=== PATIENT | female | born 1955 | race Caucasian/White ===

== ENCOUNTER 2025-06-04 12:22 | Inpatient (IN) | payer MEDICARE, SELFPAY ==
[2025-06-04] VITALS (26 sets, daily range): BP systolic 132–158; BP diastolic 71–87; PULSE 67–83; RESP 16–20; TEMP 36.1–37.3; O2SAT 94–98; BMI 49.9; BMI 51.7
--- NOTE | 2025-06-04 12:41 | XR_ITS ---
Examination: CT abdomen and pelvis without contrast. Coronal 3-D reconstructions. Sagittal 2-D reconstructions. Date and time of exam:June 04, 2025, 1257 hrs. Indications: Onset generalized abdominal pain today CTDI: vol (mGy): 24 DLP: (mGycm): 1279 Technique: Axial images of the abdomen have been obtained, 3 mm slice thickness Intravenous contrast material has not been administered. Low dose protocols were performed. One or more of the following dose reduction techniques were used; automated exposure control, adjustment of the mA and/or KV according to patient size, use of iterative reconstruction technique. Findings: Liver is mildly irregular in contour and moderately enlarged Absent gallbladder Common hepatic duct 14 mm Edema around the pancreas including tail pancreas Spleen is not enlarged No renal or ureteral calculi, no hydronephrosis. Aorta normal size. No bowel obstruction. No pericecal inflammatory change No bowel obstruction or diverticulitis No pelvic mass Advanced degenerative disc disease L2-L3, L4-L5, L5-S1 Impression: Pancreatitis, no pseudocyst Enlarged common hepatic duct, consider MRCP follow-up
--- NOTE | 2025-06-04 12:42 | PD.EDRME ---
Rapid Medical Screening Exam RME Arrival date/time: 06/04/25 12:22 69-year-old female presents to the Emergency Department today for complaint of abdominal pain Chief Complaint: Abdominal Pain Vital signs: Vital Signs Temperature 99.2 F 06/04/25 12:36 Pulse Rate 83 06/04/25 12:36 Respiratory Rate 18 06/04/25 12:36 Blood Pressure 146/81 H 06/04/25 12:36 Pulse Oximetry (%) 98 06/04/25 12:36 Oxygen Delivery Method Room Air 06/04/25 12:36
[2025-06-04 13:48] LABS: Basophils # (Auto) 0.0 Thou/mm3 (0.0-0.2); Basophils % (Auto) 0 % (0-2.5); Eosinophils # (Auto) 0.1 Thou/mm3 (0.0-0.5); Eosinophils % (Auto) 1 % (0-10); Hematocrit 35.1 % (36.0-46.0); Hemoglobin 12.2 g/dL (12.0-16.0); Immature Granulocytes Auto 0.08 Thou/mm3 (0.00-0.00); Lymphocytes # (Auto) 1.7 Thou/mm3 (1.0-4.8); Lymphocytes % (Auto) 12 % (10-50); Mean Corpuscular HGB Conc 34.8 g/dl (31.0-37.0); Mean Corpuscular Hemoglobin 31.1 pg (25.0-35.0); Mean Corpuscular Volume 90 fL (80-100); Monocytes # (Auto) 0.7 Thou/mm3 (0.0-0.8); Monocytes % (Auto) 5 % (0-12); Neutrophils # (Auto) 11.3 Thou/mm3 (1.8-7.7); Neutrophils % (Auto) 81 % (37-80); Nucleated Red Blood Cell # 0.00 Thou/mm3 (0.00-0.00); Nucleated Red Blood Cell % 0 /100 WBC (0); Platelet Count 198 Thou/mm3 (140-440); RDW Standard Deviation 44.6 fL (36.4-46.3); Red Blood Count 3.92 Miln/mm3 (4.00-5.20); White Blood Count 13.9 Thou/mm3 (3.6-11.0)
[2025-06-04 14:17] LABS: Alanine Aminotransferase 39 U/L (10-49); Albumin, Serum 4.2 gm/dL (3.4-4.8); Albumin/Globulin Ratio 1.6 (1.2-2.2); Alkaline Phosphatase 88 U/L (46-116); Anion Gap 9 (7-16); Aspartate Amino Transferase 23 U/L (0-34); BUN/Creatinine Ratio 12 Ratio (12-20); Bilirubin,Total 1.3 mg/dL (0.3-1.2); Blood Urea Nitrogen 11 mg/dL (9-23); Calcium 8.7 mg/dL (8.3-10.6); Calcium (Corrected) 8.7 mg/dL (8.5-10.1); Carbon Dioxide 27.1 mMol/L (20.0-31.0); Chloride 101 mMol/L (98-107); Creatinine (Component) 0.9 mg/dL (0.6-1.3); Estimated Creatinine Clearance 74.1 mL/min (>60); Globulin 2.7 gm/dL (2.3-3.5); Glucose 132 mg/dL (74-106); Lipase 44 U/L (12-53); Osmolality,Calculated 275 (275-295); Potassium 3.1 mMol/L (3.4-5.1); Sodium 137 mMol/L (136-145); Total Protein 6.9 gm/dL (5.7-8.2); Troponin I < 0.020 ng/mL (0.0-0.045); eGFR > 60 See Note
--- NOTE | 2025-06-04 14:49 | EDNOTE_ITS ---
ED Abdominal Pain RME/HPI General Chief Complaint: Abdominal Pain Stated complaint: ABD/BACK PAIN; VOMITING Time seen by provider: 06/04/25 14:29 Arrival date/time: 06/04/25 12:22 RME / HPI RME / HPI narrative: 69-year-old female patient with significant history of hypertension, morbid obesity, came in for evaluation regarding left upper quadrant pain. Patient has been having pain to the left upper quadrant, described as dull ache, severity 5 out of 10, been ongoing for the last 3 days associated with nausea and vomiting this morning. Patient denies any fever. Denies any diarrhea constipation denies any other complaints. Patient is nonalcoholic. Patient surgical history includes laparoscopic cholecystectomy. Patient has been taking Tylenol with no relief. Related Data Allergies Allergy/AdvReac Type Severity Reaction Status Date / Time No Known Allergies Allergy Verified 06/04/25 12:26 Review of Systems Review of Systems Narrative Review of Systems: Review of system reviewed and within normal limits except mentioned in HPI ED Exam Narrative Physical exam: VITAL SIGNS: Reviewed. GENERAL APPEARANCE: Alert and interactive, follows commands, no acute distress, HEAD AND FACE: Non-traumatic. ENT: PERRL, pink conjunctivitis, eyelid no trauma, Mucous membrane moist. NECK: Supple, nontender, no nuchal rigidity. CHEST: No tenderness, no crepitus, no paradoxical movement, no retractions. LUNGS: Clear, well ventilated, symmetric, no rales, no wheezing, no ronchi, no stridor, good breath sounds bilaterally. HEART: Regular rate, regular rhythm, no murmur, no gallops. ABDOMEN: Soft, positive bowel sounds, nondistended, no guarding, left upper quadrant tenderness, no rebound, no masses, RECTAL: Deferred. GENITAL: Deferred. NEUROLOGICAL: Gross motor function intact sensory function intact, Appropriate for age. MUSCULOSKELETAL: low back nontender, full range of motion. EXTREMITIES: Nontender, full range of motion. SKIN: Color pink, dry, no rash, no lacerations, no abrasions, no contusions. LYMPHATICS: Deferred. Course Quality Measures none Orders Category Date Time Status COVID-19 Screening Questionnaire NOW Care 06/04/25 15:17 Active Decision to Admit X1 Care 06/04/25 15:[address] abdomen pelvis wo con Stat Exams 06/04/25 12:41 Completed CBC Stat Lab 06/04/25 13:13 Completed Comprehensive Metabolic Panel Stat Lab 06/04/25 13:13 Completed Lipase Stat Lab 06/04/25 13:13 Completed Lipid Panel Stat Lab 06/04/25 15:04 Completed Troponin I Stat Lab 06/04/25 13:13 Completed UA, C/S IF [Urinalysis, C/S if Indicated] Stat Lab 06/04/25 12:41 Ordered Morphine Inj Med 06/04/25 14:52 Discontinued 4 mg IVP X1 ONE Potassium Chloride [K-Dur] Med 06/04/25 14:29 Discontinued 40 meq PO X1 ONE Ringers Lactated 1000 ml [Lactated Ringers] 1,000 ml Med 06/04/25 14:52 Discontinued IV 999 mls/hr Vital Signs Vital signs: Vital Signs Temperature 99.2 F 06/04/25 12:36 Pulse Rate 83 06/04/25 12:36 Respiratory Rate 18 06/04/25 12:36 Blood Pressure 146/81 H 06/04/25 12:36 Pulse Oximetry (%) 98 06/04/25 12:36 Oxygen Delivery Method Room Air 06/04/25 12:36 Abdominal Pain MDM [facility] Narrative [facility] Narrative:: 69-year-old female patient with significant history of hypertension, morbid obesity, came in for evaluation regarding left upper quadrant pain. Patient has been having pain to the left upper quadrant, described as dull ache, severity 5 out of 10, been ongoing for the last 3 days associated with nausea and vomiting this morning. Patient denies any fever. Denies any diarrhea constipation denies any other complaints. Patient is nonalcoholic. Patient surgical history includes laparoscopic cholecystectomy. Patient has been taking Tylenol with no relief. workup is significant for acute pancreatitis per CT scan, patient's lipase is n ormal. Lipid panel also came back unremarkable. Patient received IV fluids, morphine, potassium replacement. Case discussed with hospitalist, who admitted the patient. Patient data External records reviewed:: None Clinical information provided by:: patient Social determinants that could affect healthcare access:: none Patient has the following chronic illnesses:: Hypertension How is presenting disease/condition affected by chronic disease/condition?: uneffected by Evaluation data The following diagnostics were reviewed and interpreted by me:: lab results and radiology exam(s) Lab and/or radiology exams considered but not ordered:: None Interpretation Summary: See results MDM Medications / Prescriptions Medications or Prescriptions considered but not ordered:: none Medication administrations:: Medication Administration History Discontinued Medications Lactated Ringer's (Lactated Ringers) 1,000 mls @ 999 mls/hr IV .Q1H1M ONE Stop: 06/04/25 15:52 Last Infusion: 06/04/25 15:58 Dose: Infused Documented By: Admin: 06/04/25 15:03 Dose: 999 mls/hr Documented By: MARE Morphine Sulfate (Morphine Sulf Inj 10 Mg/Ml Vial) 4 mg IVP X1 ONE Stop: 06/04/25 14:53 Last Admin: 06/04/25 16:00 Dose: 4 mg Documented By: MARE Potassium Chloride (Potassium Chloride 20 Meq Tabcr) 40 meq PO X1 ONE Stop: 06/04/25 14:30 Last Admin: 06/04/25 14:45 Dose: 40 meq Documented By: JOSE Potassium replacement morphine IV fluids Consultations Consultation(s) initiated? (list below): No Diagnosis Differential diagnosis abdominal pain: abdominal pain, gastroenteritis and pancreatitis Most likely diagnosis given after review of the tests above:: Acute pancreatitis Admission Indicated Admission indicated?: indicated Explain why admission is indicated or not indicated:: Acute pancreatitis needs monitoring and pain control Admission Request Was there a request for admission?: Yes Admission Attestation Admission request attestation: Discussed case with [Dr. Rogers] from Hospitalist service regarding admission. Discussed patients ED course, exam findings, labs, and radiology results. The Hospitalist [agrees,] to accept the patient for admission. Disposition Plan Disposition Plan: Admit Discharge Plan Plan Patient Disposition: Admit Acute Care w/in Hospital Discharge Disposition comment: Stable Prescriptions/Referrals Referrals: Teto Carranza PA-C [Primary Care Provider] - In 1 week Problem List Clinical Impression: Pancreatitis Patient/Caregiver Discharge Instructions Discharge Activity: activity as tolerated Education Materials: Pancreatitis Acute Dc Print Language: Chinese Stand Alone Forms: Lisa Award Info., Patient Portal Info Letter
[2025-06-04] MEDS: RINGERS LACTATED 1000 ML 1,000 ML 999 ML IV (15:03)
[2025-06-04 15:33] LABS: Cardiac Risk Estimate 2.5 RATIO (3.7-5.6); Cholesterol 142 mg/dL (132-200); HDL Cholesterol 57 mg/dL (40-60); LDL Cholesterol,Calculated 67 mg/dL (0-130); Triglycerides 91 mg/dL (30-150)
[2025-06-04] MEDS: MORPHINE SULF INJ 10 MG/ML VIAL 4 MG IVP (16:00)
--- NOTE | 2025-06-04 17:05 | ESHP_ITS ---
Documentation for date of: 06/04/25 Review of Systems Review of Systems Narrative Review of Systems: 69-year-old female with a significant past medical history of T2DM, hypertension and morbid obesity, and osteoarthritis of bilat hips and knees, presenting for evaluation of left upper quadrant abdominal pain. The pain is described as a dull ache with a severity of 5/10, and has been ongoing for the last 3 days. The pain is localized to the LUQ and epigastric region and radiates to the back. The patient reports laying down flat makes it worse. She notes the pain has been constant since onset. She has been taking Tylenol, but reports no relief from this medication. She also mentions not being able to sleep because of the pain. Patient experienced 6-8 episodes of emesis 3 days ago with no blood or bile and no episodes since. She has been nauseous for past 3 days. She has minimal appetite. She also denies fever, chills, diarrhea, or constipation. There is no report of hematemesis (vomiting blood) or melena (black, tarry stools). She denies any urinary symptoms, such as pain or frequency, and reports no changes in bowel habits. ED course: T 97.5, HR 83, RR 18, O2 sat 98% RA. In ED CT abdomen was done and showed edema around the pancreas including tail pancreas. Impression is pancreatitis with no pseudocyst. Labs were significant for WBC 13.9, K 3.1, lipase 44, total bilirubin 1.3, lipid panel within normal limit. In ED recieved IV fluids, morphine, and potassium potassium. PHx: as stated above Surgical Hx: Cholecystectomy 2023 for bile drainage concerns, Corrective eye surgery for Cross eye correction 1976 Social Hx: Patient lives by herself, works at [employer] part-time, independent with activities of daily living. No alcohol history, no smoking history, no drug use history. Exam Vital Signs Temp Pulse Resp BP Pulse Ox O2 Del Method 97.5 F 69 16 132/78 H 96 Room Air 06/04/25 16:24 06/04/25 16:24 06/04/25 16:24 06/04/25 16:24 06/04/25 16:24 06/04/25 16:24 Narrative Exam General: Alert, no acute distress. Skin: Warm, dry, intact, no obvious rash. Head: Normocephalic, atraumatic. Eye: Normal conjunctiva, PERRL. Throat: Oral mucosa moist. No obvious lesions in oropharynx. Cardiovascular: Regular rate and rhythm, no murmur, +S1/S2. Respiratory: Lungs are clear to auscultation, respirations unlabored, no crackles, no wheezing. Gastrointestinal: Soft, nondistended, mild tenderness to epigastric and left upper quadrant. No guarding or rebound tenderness. Extremities: No edema, no cyanosis, no clubbing. Mild tenderness to lumbar region vertebral and paravertebral. Neuro: No focal deficits observed. Conversant, moving all extremities. No overt cerebellar signs/incoordination. Psychiatric: Cooperative, appropriate affect. Results: Labs 06/05/25 05:19 06/05/25 05:19 Labs: Short CBC 06/04/25 Range/Units 13:13 WBC 13.9 H (3.6-11.0) Thou/mm3 Hgb 12.2 (12.0-16.0) g/dL Hct 35.1 L (36.0-46.0) % Plt Count 198 (140-440) Thou/mm3 BMP 06/04/25 13:13 Sodium 137 Potassium 3.1 L Chloride 101 Carbon Dioxide 27.1 BUN 11 Creatinine 0.9 Glucose 132 H Calcium 8.7 Cardiac Enzymes 06/04/25 Range/Units 13:13 Troponin I < 0.020 (0.0-0.045) ng/mL Liver Function 06/04/25 Range/Units 13:13 Total Bilirubin 1.3 H (0.3-1.2) mg/dL AST 23 (0-34) U/L ALT 39 (10-49) U/L Alkaline Phosphatase 88 (46-116) U/L Albumin 4.2 (3.4-4.8) gm/dL Quality Measures Quality Measures none Advance care planning discussed with:: patient Medications Home Medications and Allergies Home Medications ?Medication ?Instructions ?Recorded ?Confirmed ?Type acetaminophen 500 mg tablet 500 mg PO Q6H PRN fever or pain 06/04/25 06/04/25 History albuterol sulfate 90 mcg/actuation 1 puff inhalation Q 4H PRN 06/04/25 06/04/25 History aerosol inhaler shortness of breath or wheez ing atorvastatin 10 mg tablet 10 mg PO QDAY 06/04/2506/04 History benazepril 20 mg tablet 20 mg PO QDAY 06/04/2506/04 History fluticasone propionate 50 2 spray intranasal Q12H 05/2406/04/25 History mcg/actuation nasal spray,suspension hydrochlorothiazide 25 mg tablet 25 mg PO QDAY 5 06/04/25 History metformin 500 mg tablet 500 mg PO QDAY 06/04/2505/24 History omeprazole 20 mg capsule,delayed 20 mg PO QDAY 5 06/04/25 History release Allergies Allergy/AdvReac Type Severity Reaction Status Date / Time No Known Allergies Allergy Verified 06/04/25 12:26 Visit Medications Acetaminophen (Acetaminophen 325 Mg Tablet) 650 mg PO Q6H PRN PRN Reason: Fever >100 or pain 1-3 Stop: 07/04/25 16:42 Hydrocodone Bitart/Acetaminophen (Hydrocodone/Apap 10/325 Tab) 1 tab PO Q4H PRN PRN Reason: PAIN SCALE 4-6 (Moderate Stop: 06/09/25 16:33 Atorvastatin Calcium (Atorvastatin Calcium 10 Mg Tablet) 10 mg PO HS GLADIS Stop: 07/04/25 20:59 Bisacodyl (Bisacodyl 10 Mg Supp) 10 mg RI QDAY PRN; Protocol PRN Reason: Constipation Stop: 07/04/25 16:33 Dextrose (Dextrose 50%-Water Inj 50 Ml Syringe) 25 ml IV Q15MIN PRN PRN Reason: BG 50-70 responsive npo pt Stop: 07/04/25 16:44 Dextrose (Dextrose 50%-Water Inj 50 Ml Syringe) 50 ml IV Q15MIN PRN PRN Reason: BG <50 OR BG <70 & pt unresponsive Stop: 07/04/25 16:44 Enoxaparin Sodium (Enoxaparin Sod Inj 40 Mg/0.4 Ml Syringe) 40 mg SC QDAY [facility] Stop: 06/18/25 16:44 Glucagon (Glucagon Inj 1 Mg Vial) 1 mg IM Q15MIN PRN PRN Reason: BG <70, and no IV access Lactated Ringer's (Lactated Ringers) 1,000 mls @ 150 mls/hr IV .Q6H40M [facility] Stop: 07/04/25 16:51 Insulin Human Lispro (Insulin Lispro (Admelog) 1 Unit/0.01 Ml Unit) 0 unit SC AC [facility]; Protocol Stop: 07/04/25 16:59 Morphine Sulfate (Morphine Sulf Inj 10 Mg/Ml Vial) 2 mg IVP Q2H PRN PRN Reason: PAIN SCALE 7-10 (Severe Stop: 06/09/25 16:41 Ondansetron HCl (Ondansetron Inj 2 Mg/Ml Inj 2 Ml) 4 mg IVP Q4H PRN; Protocol PRN Reason: nausea or vomiting Stop: 07/04/25 16:52 Pantoprazole Sodium (Pantoprazole Inj 40 Mg Vial) 40 mg IVP QDAY GLADIS Stop: 07/04/25 16:44 Discontinued Medications Lactated Ringer's (Lactated Ringers) 1,000 mls @ 999 mls/hr IV .Q1H1M ONE Stop: 06/04/25 15:52 Last Infusion: 06/04/25 15:58 Dose: Infused Lactated Ringer's (Lactated Ringers) 1,000 mls @ 200 mls/hr IV .Q5H [facility] Stop: 07/04/25 16:44 Morphine Sulfate (Morphine Sulf Inj 10 Mg/Ml Vial) 4 mg IVP X1 ONE Stop: 06/04/25 14:53 Last Admin: 06/04/25 16:00 Dose: 4 mg Potassium Chloride (Potassium Chloride 20 Meq Tabcr) 40 meq PO X1 ONE Stop: 06/04/25 14:30 Last Admin: 06/04/25 14:45 Dose: 40 meq Assessment & Plan Plan Assessment: 69-year-old female with a significant past medical history of T2DM, hypertension and morbid obesity, and osteoarthritis of bilat hips and knees, presenting for evaluation of LUQ and epigastric abdominal pain x 3 days. Patient admitted for treatment of pancreatitis. #Acute pancreatitis Causes of pancreatitis include gallstones, alcohol, high triglycerides, hypercalcemia. Patient presented with left upper quadrant pain and epigastric pain for the past 3 days with radiation to the back and associated nausea and vomiting. Patient has no alcohol history, cholecystectomy done last year, lipid panel within normal limits, calcium level within normal limits. No exposure to contrast recently. Of note patient uses hydrochlorothiazide, benazepril for hypertension control. Lipase: 44 Lipid panel: Triglycerides 91, cholesterol 142, LDL 67 CT abdomen shows edema around the pancreas including tail of the pancreas Leukocytosis WBC 13.9 - expected finding in acute pancreatitis Plan ? N.p.o. ? IV fluids lactated Ringer's 150 cc an hour ? Morphine as needed ? Antiemetics ? Monitor clinical status #Type 2 diabetes Patient on metformin at home 500 mg daily Patient mentions A1c level of 5.7% around 3 weeks ago Plan ? Insulin sliding scale ? Hypoglycemia protocol ? A1c level ordered #Hypertension Blood pressure 146/81 Holding benazepril and hydrochlorothiazide at present Plan - If patient's blood pressures not controlled consider adding antihypertensives #Hyperlipidemia Triglycerides 91, cholesterol 142, LDL 67 Plan Ordered atorvastatin 10 mg daily as per home dosing, resume when allowed oral intake Health Maintenance: Diet: N.p.o. GI prophylaxis: Protonix DVT prophylaxis: Enoxaparin Antibiotics: None CODE STATUS: Full Disposition: MedSur Case discussed with my attending Dr. Saba Briseno MD PGY-1 Attending Provider Attestation/Addendum I have examined the patient, reviewed labs and imaging findings, discussed the case with the resident(s), and reviewed entered orders. I agree with the plan of care as outlined in this note, with these additional summaries/recommendations: After examination of the patient and review of the clinical data, I feel that this patient needs admission to the hospital for further treatment and evaluation. Patient seen at bedside. She meets criteria for acute pancreatitis with 2 out of 3 cardinal signs. She endorses typical abdominal pain and edema around the pancreas including the tail. Unclear etiology for acute pancreatitis at this time. Possibly secondary to medication although awaiting home medication reconciliation. No evidence of alcohol withdrawal or biliary stone. Triglycerides within normal limits. Start IV fluids, pain management, and bowel rest. As needed Zofran for nausea and Tylenol for fever. Leukocytosis present although likely reactive and will monitor for now. Repeat hematology panel in AM. Minimal hypokalemia present and replacement given. Follow-up repeat level in AM. Start insulin sliding scale for diabetes mellitus type 2 with Accu- Cheks. Target blood sugar 140-180 while hospitalized. Patient is morbidly obese and should follow-up with PCP for weight loss management. Patient updated on the plan and in agreement. All questions answered to satisfaction. Please see residents note for additional details and management. Dr. Saba MD
[2025-06-04] MEDS: ENOXAPARIN SOD INJ 40 MG/0.4 ML SYRINGE SC (17:28)
[2025-06-04] MEDS: RINGERS LACTATED 1000 ML 1,000 ML 150 ML IV (17:37)
[2025-06-04 18:28] LABS: Collection Type, Urine Clean Catch
[2025-06-04 18:39] LABS: Bilirubin,Urine Negative (Negative); Blood,Urine Negative (Negative); Clarity,Urine Clear (Clear/Hazy); Color,Urine Yellow (Lt Yel-Yel); Glucose, Urine Negative (Negative); Ketones,Urine 1+ (Negative); Leukocyte Esterase,Urine Positive (Negative); Nitrite,Urine Negative (Negative); PH,Urine 7.0 (5.0-7.0); Protein,Urine 1+ (Neg - Trace); RBC,Urine 4 /hpf (0-3); Specific Gravity,Urine 1.024 (1.001-1.035); Squamous Epithelial Cell,Urine 7 /hpf (0-5); Urobilinogen,Urine 3.0 mg/dL (0.0-1.0); WBC,Urine 11 /hpf (0-5)
[2025-06-04 18:41] LABS: Culture Indicated,Urine Yes
[2025-06-04] MEDS: ATORVASTATIN CALCIUM 10 MG TABLET PO (20:21)
[2025-06-05] VITALS (7 sets, daily range): BP systolic 120–154; BP diastolic 67–92; PULSE 63–71; RESP 16–18; TEMP 36.1–36.8; O2SAT 93–97
[2025-06-05] MEDS: RINGERS LACTATED 1000 ML 1,000 ML 150 ML IV ×3 (02:21→20:12)
[2025-06-05 06:26] LABS: Basophils # (Auto) 0.0 Thou/mm3 (0.0-0.2); Basophils % (Auto) 0 % (0-2.5); Eosinophils # (Auto) 0.2 Thou/mm3 (0.0-0.5); Eosinophils % (Auto) 1 % (0-10); Hematocrit 35.5 % (36.0-46.0); Hemoglobin 12.1 g/dL (12.0-16.0); Immature Granulocytes Auto 0.06 Thou/mm3 (0.00-0.00); Lymphocytes # (Auto) 1.6 Thou/mm3 (1.0-4.8); Lymphocytes % (Auto) 12 % (10-50); Mean Corpuscular HGB Conc 34.1 g/dl (31.0-37.0); Mean Corpuscular Hemoglobin 31.1 pg (25.0-35.0); Mean Corpuscular Volume 91 fL (80-100); Monocytes # (Auto) 0.8 Thou/mm3 (0.0-0.8); Monocytes % (Auto) 6 % (0-12); Neutrophils # (Auto) 11.3 Thou/mm3 (1.8-7.7); Neutrophils % (Auto) 81 % (37-80); Nucleated Red Blood Cell # 0.00 Thou/mm3 (0.00-0.00); Nucleated Red Blood Cell % 0 /100 WBC (0); Platelet Count 196 Thou/mm3 (140-440); RDW Standard Deviation 46.0 fL (36.4-46.3); Red Blood Count 3.89 Miln/mm3 (4.00-5.20); White Blood Count 14.0 Thou/mm3 (3.6-11.0)
[2025-06-05 07:14] LABS: Alanine Aminotransferase 31 U/L (10-49); Albumin, Serum 3.9 gm/dL (3.4-4.8); Albumin/Globulin Ratio 1.5 (1.2-2.2); Alkaline Phosphatase 96 U/L (46-116); Anion Gap 9 (7-16); Aspartate Amino Transferase 20 U/L (0-34); BUN/Creatinine Ratio 15 Ratio (12-20); Bilirubin,Total 1.6 mg/dL (0.3-1.2); Blood Urea Nitrogen 12 mg/dL (9-23); Calcium 8.6 mg/dL (8.3-10.6); Calcium (Corrected) 8.7 mg/dL (8.5-10.1); Carbon Dioxide 25.9 mMol/L (20.0-31.0); Chloride 103 mMol/L (98-107); Creatinine (Component) 0.8 mg/dL (0.6-1.3); Estimated Creatinine Clearance 85.3 mL/min (>60); Globulin 2.6 gm/dL (2.3-3.5); Glucose 110 mg/dL (74-106); Magnesium 1.4 mg/dL (1.6-2.6); Osmolality,Calculated 276 (275-295); Phosphorous 1.9 mg/dL (2.4-5.1); Potassium 3.3 mMol/L (3.4-5.1); Sodium 138 mMol/L (136-145); Total Protein 6.5 gm/dL (5.7-8.2); eGFR > 60 See Note
[2025-06-05 07:16] LABS: Glucose Estimated Average 111 mg/dL (80-131); Hemoglobin A1C 5.5 % Hgb (4.8-6.0)
[2025-06-05] MEDS: ENOXAPARIN SOD INJ 40 MG/0.4 ML SYRINGE SC (09:02)
[2025-06-05] MEDS: LOSARTAN POTASSIUM 25 MG TABLET PO (09:02)
[2025-06-05] MEDS: POTASSIUM CHL 10 mEq IVPB 10 MEQ/100 ML BAG 100 MEQ IV ×4 (09:13→12:19)
--- NOTE | 2025-06-05 12:57 | PD.RESPRO ---
Documentation for date of: 06/05/25 Subjective Subjective Interval history: Patient examined today at bedside. No acute overnight events. Patient feels well today, no complaints of abdominal pain, no chest pain, no shortness of breath. Last bowel movement 2 days ago. Exam Vital Signs Temp Pulse Resp BP Pulse Ox O2 Del Method 96.9 F 64 18 131/73 H 93 L Room Air 06/05/25 08:00 06/05/25 09:02 06/05/25 08:00 06/05/25 09:02 06/05/25 08:00 06/05/25 08:00 Narrative Exam General: Alert, no acute distress. Skin: Warm, dry, intact, no obvious rash. Head: Normocephalic, atraumatic. Eye: Normal conjunctiva, PERRL. Throat: Oral mucosa moist. No obvious lesions in oropharynx. Cardiovascular: Regular rate and rhythm, no murmur, +S1/S2. Respiratory: Lungs are clear to auscultation, respirations unlabored, no crackles, no wheezing. Gastrointestinal: Soft, nondistended, no abdominal tenderness. No guarding or rebound tenderness. Extremities: No edema, no cyanosis, no clubbing. Mild tenderness to lumbar region vertebral and paravertebral. Neuro: No focal deficits observed. Conversant, moving all extremities. No overt cerebellar signs/incoordination. Psychiatric: Cooperative, appropriate affect. Objective Labs 06/06/25 05:59 06/06/25 05:59 Labs: Laboratory Results - last 24 hr 06/04/25 06/04/25 06/04/25 13:13 15:04 18:16 WBC 13.9 H RBC 3.92 L Hgb 12.2 Hct 35.1 L MCV 90 MCH 31.1 MCHC 34.8 RDW Std Deviation 44.6 Plt Count 198 Neut % (Auto) 81 H Lymph % (Auto) 12 [place] % (Auto) 5 Eos % (Auto) 1 Baso % (Auto) 0 Neut # (Auto) 11.3 H Lymph # (Auto) 1.7 [place] # (Auto) 0.7 Eos # (Auto) 0.1 Baso # (Auto) 0.0 Immature Gran # (Auto) 0.08 H Absolute Nucleated RBC 0.00 Immature Gran % 1 H Nucleated RBC % 0 Sodium 137 Potassium 3.1 L Chloride 101 Carbon Dioxide 27.1 Anion Gap 9 BUN 11 Creatinine 0.9 Estim Creat Clear Calc 74.1 eGFR > 60 BUN/Creatinine Ratio [address] Glu mg/dL Hemoglobin A1c Calculated Osmolality 275 Calcium 8.7 Corrected Calcium 8.7 Phosphorus Magnesium Total Bilirubin 1.3 H AST 23 ALT 39 Alkaline Phosphatase 88 Troponin I < 0.020 Total Protein 6.9 Albumin 4.2 Globulin 2.7 Albumin/Globulin Ratio 1.6 Triglycerides 91 Cholesterol 142 LDL Cholesterol, Calc 67 HDL Cholesterol 57 Cholesterol/HDL Ratio 2.5 L Lipase 44 Ur Collection Type Clean Catch Urine Color Yellow Urine Clarity Clear Urine pH 7.0 Ur Specific [place] 1.024 Urine Protein 1+ A Urine Glucose (UA) Negative Urine Ketones 1+ A Urine Blood Negative Urine Nitrite Negative Urine Bilirubin Negative Urine Urobilinogen (Auto) 3.0 Ur Leukocyte Esterase Positive Urine RBC 4 H Urine WBC 11 H Ur Squamous Epith Cells 7 H Urine Bacteria None Ur Culture Indicated? Yes 06/05/25 05:19 WBC 14.0 H RBC 3.89 L Hgb 12.1 Hct 35.5 L MCV 91 MCH 31.1 MCHC 34.1 RDW Std Deviation 46.0 Plt Count 196 Neut % (Auto) 81 H Lymph % (Auto) 12 [place] % (Auto) 6 Eos % (Auto) 1 Baso % (Auto) 0 Neut # (Auto) 11.3 H Lymph # (Auto) 1.6 [place] # (Auto) 0.8 Eos # (Auto) 0.2 Baso # (Auto) 0.0 Immature Gran # (Auto) 0.06 H Absolute Nucleated RBC 0.00 Immature Gran % 0 Nucleated RBC % 0 Sodium 138 Potassium 3.3 L Chloride 103 Carbon Dioxide 25.9 Anion Gap 9 BUN 12 Creatinine 0.8 Estim Creat Clear Calc 85.3 eGFR > 60 BUN/Creatinine Ratio [address]ucose [address] Glu mg/dL 111 Hemoglobin A1c 5.5 Calculated Osmolality 276 Calcium 8.6 Corrected Calcium 8.7 Phosphorus 1.9 L Magnesium 1.4 L Total Bilirubin 1.6 H AST 20 ALT 31 Alkaline Phosphatase 96 Troponin I Total Protein 6.5 Albumin 3.9 Globulin 2.6 Albumin/Globulin Ratio 1.5 Triglycerides Cholesterol LDL Cholesterol, Calc HDL Cholesterol Cholesterol/HDL Ratio Lipase Ur Collection Type Urine Color Urine Clarity Urine pH Ur Specific [place] Urine Protein Urine Glucose (UA) Urine Ketones Urine Blood Urine Nitrite Urine Bilirubin Urine Urobilinogen (Auto) Ur Leukocyte Esterase Urine RBC Urine WBC Ur Squamous Epith Cells Urine Bacteria Ur Culture Indicated? Quality Measures Quality Measures none Advance care planning discussed with:: patient Assessment & Plan Assessment Current Active Medications: Generic Name Dose Route Start Last Admin Trade Name Freq PRN Reason Stop Dose Admin Acetaminophen 650 mg 06/04/25 16:43 Acetaminophen 325 Mg Tablet PO 07/04/25 16:42 Q6H PRN Fever >100 or pain 1-3 Hydrocodone Bitart/Acetaminophen 1 tab 06/04/25 16:34 06/05/25 09:01 Hydrocodone/Apap 10/325 Tab PO 06/09/25 16:33 1 tab Q4H PRN Administration PAIN SCALE 4-6 (Moderate Atorvastatin Calcium 10 mg 06/04/25 21:00 06/04/25 20:21 Atorvastatin Calcium 10 Mg Tablet PO 07/04/25 20:59 10 mg HS GLADIS Administration Bisacodyl 10 mg 06/04/25 16:34 Bisacodyl 10 Mg Supp OH 07/04/25 16:33 QDAY PRN Constipation Protocol Dextrose 25 ml 06/04/25 16:45 Dextrose 50%-Water Inj 50 Ml Syringe IV 07/04/25 16:44 Q15MIN PRN BG 50-70 responsive npo pt Dextrose 50 ml 06/04/25 16:45 Dextrose 50%-Water Inj 50 Ml Syringe IV 07/04/25 16:44 Q15MIN PRN BG <50 OR BG <70 & pt unresponsive Enoxaparin Sodium 40 mg 06/04/25 16:45 06/05/25 09:02 Enoxaparin Sod Inj 40 Mg/0.4 Ml Syringe SC 06/18/25 16:44 40 mg QDAY GLADIS Administration Glucagon 1 mg 06/04/25 16:45 Glucagon Inj 1 Mg Vial IM Q15MIN PRN BG <70, and no IV access Lactated Ringer's 1,000 mls @ 150 mls/hr 06/04/25 16:52 06/05/25 08:56 Lactated Ringers IV 07/04/25 16:51 150 mls/hr .Q6H40M GLADIS Administration Insulin Human Lispro 0 unit 06/05/25 00:00 06/05/25 11:24 Insulin Lispro (Admelog) 1 Unit/0.01 Ml Unit SC 07/05/25 00:00 Not Given Q6HR GLADIS Protocol Losartan Potassium 25 mg 06/05/25 09:00 06/05/25 09:02 Losartan Potassium 25 Mg Tablet PO 07/05/25 08:59 25 mg QDAY GLADIS Administration Morphine Sulfate 2 mg 06/04/25 16:42 Morphine Sulf Inj 10 Mg/Ml Vial IVP 06/09/25 16:41 Q2H PRN PAIN SCALE 7-10 (Severe Ondansetron HCl 4 mg 06/04/25 16:53 Ondansetron Inj 2 Mg/Ml Inj 2 Ml IVP 07/04/25 16:52 Q4H PRN nausea or vomiting Protocol Pantoprazole Sodium 40 mg 06/04/25 16:45 06/05/25 09:12 Pantoprazole Inj 40 Mg Vial IVP 07/04/25 16:44 40 mg QDAY GLADIS Administration Potassium Phos/Sodium Phos 1 packet 06/05/25 21:00 [place],[facility] Mbdb 1 Packet (1.5 Gm) PO 07/05/25 20:59 BID GLADIS Plan Assessment: 69-year-old female with a significant past medical history of T2DM, hypertension and morbid obesity, and osteoarthritis of bilat hips and knees, presenting for evaluation of LUQ and epigastric abdominal pain x 3 days. Patient admitted for treatment of acute pancreatitis. #Acute pancreatitis Causes of pancreatitis include gallstones, alcohol, high triglycerides, hypercalcemia. Patient presented with left upper quadrant pain and epigastric pain for the past 3 days with radiation to the back and associated nausea and vomiting. Patient has no alcohol history, cholecystectomy done last year, lipid panel within normal limits, calcium level within normal limits. No exposure to contrast recently. Of note patient uses hydrochlorothiazide, benazepril for hypertension control. Lipase: 44 Lipid panel: Triglycerides 91, cholesterol 142, LDL 67 CT abdomen shows edema around the pancreas including tail of the pancreas Leukocytosis WBC 13.9 - expected finding in acute pancreatitis Plan ? Advance to clear fluids ? IV fluids lactated Ringer's 150 cc an hour ? Morphine as needed ? Antiemetics ? Monitor clinical status ? Patient may be taking semaglutide?follow-up on this ? Likely discharge within the next 24 to 48 hours if continuing to improve #Electrolyte derangements Potassium 3.3 -> replenished today Magnesium 1.4 -> replenished today Phosphorus 1.9 -> replenished today #Type 2 diabetes Patient on metformin at home 500 mg daily ? Semaglutide Patient mentions A1c level of 5.7% around 3 weeks ago Plan ? Insulin sliding scale ? Hypoglycemia protocol ? A1c level ordered #Hypertension Blood pressure 146/81 Holding benazepril and hydrochlorothiazide at present due to possible cause of pancreatitis Plan - Added losartan 25 mg daily #Hyperlipidemia Triglycerides 91, cholesterol 142, LDL 67 Plan Ordered atorvastatin 10 mg daily as per home dosing, resume when allowed oral intake Health Maintenance: Diet: Clear fluids GI prophylaxis: Protonix DVT prophylaxis: Enoxaparin Antibiotics: None CODE STATUS: [facility] with my attending Dr. Saba Briseno MD PGY-1 Attending Provider Attestation/Addendum I have examined the patient, reviewed labs and imaging findings, discussed the case with the resident(s), and reviewed entered orders. I agree with the plan of care as outlined in this note, with these additional summaries/recommendations: After examination of the patient and review of the clinical data, I feel that this patient needs admission to the hospital for further treatment and evaluation. Patient seen at bedside. No acute overnight events. Patient reports significant improvement in abdominal pain although not resolved. Patient diagnosed with acute pancreatitis on admission. She met criteria for acute pancreatitis with 2 out of 3 cardinal signs. Unclear etiology for acute pancreatitis at this time. Possibly secondary to medication although awaiting home medication reconciliation. No evidence of alcohol withdrawal or biliary stone. Triglycerides within normal limits. Continue IV fluids, pain management, and bowel rest. As needed Zofran for nausea and Tylenol for fever. Leukocytosis present although likely reactive and will monitor for now. Repeat hematology panel in AM. Continue insulin sliding scale for diabetes mellitus type 2 with Accu-Cheks. Target blood sugar 140-180 while hospitalized. Patient is morbidly obese and should follow-up with PCP for weight loss management. Patient updated on the plan and in agreement. All questions answered to satisfaction. Please see residents note for additional details and management. Dr. Saba MD
[2025-06-05] MEDS: Magnesium Sulfate 4 GM Ivpb 4 GM/50 ML BAG IV (13:06)
--- NOTE | 2025-06-05 15:02 | PC.SS ---
Rounding note: Advancing diet, patient experiencing pain when eating. Patient to discharge home when medically clear.
[2025-06-05] MEDS: NAPH,KPH MBDB 1 PACKET (1.5 GM) PO (20:07)
[2025-06-05] MEDS: ATORVASTATIN CALCIUM 10 MG TABLET PO (20:07)
[2025-06-06] VITALS (7 sets, daily range): BP systolic 103–136; BP diastolic 68–77; PULSE 64–69; RESP 16–97; TEMP 36.1–36.7; O2SAT 93–97
[2025-06-06 06:36] LABS: Basophils # (Auto) 0.0 Thou/mm3 (0.0-0.2); Basophils % (Auto) 0 % (0-2.5); Eosinophils # (Auto) 0.3 Thou/mm3 (0.0-0.5); Eosinophils % (Auto) 3 % (0-10); Hematocrit 31.1 % (36.0-46.0); Hemoglobin 10.6 g/dL (12.0-16.0); Immature Granulocytes Auto 0.06 Thou/mm3 (0.00-0.00); Lymphocytes # (Auto) 1.5 Thou/mm3 (1.0-4.8); Lymphocytes % (Auto) 13 % (10-50); Mean Corpuscular HGB Conc 34.1 g/dl (31.0-37.0); Mean Corpuscular Hemoglobin 30.9 pg (25.0-35.0); Mean Corpuscular Volume 91 fL (80-100); Monocytes # (Auto) 0.7 Thou/mm3 (0.0-0.8); Monocytes % (Auto) 6 % (0-12); Neutrophils # (Auto) 8.9 Thou/mm3 (1.8-7.7); Neutrophils % (Auto) 78 % (37-80); Nucleated Red Blood Cell # 0.00 Thou/mm3 (0.00-0.00); Nucleated Red Blood Cell % 0 /100 WBC (0); Platelet Count 174 Thou/mm3 (140-440); RDW Standard Deviation 44.6 fL (36.4-46.3); Red Blood Count 3.43 Miln/mm3 (4.00-5.20); White Blood Count 11.4 Thou/mm3 (3.6-11.0)
[2025-06-06] MEDS: RINGERS LACTATED 1000 ML 1,000 ML 150 ML IV (06:39)
[2025-06-06 06:51] LABS: Alanine Aminotransferase 23 U/L (10-49); Albumin, Serum 3.5 gm/dL (3.4-4.8); Albumin/Globulin Ratio 1.5 (1.2-2.2); Alkaline Phosphatase 97 U/L (46-116); Anion Gap 9 (7-16); Aspartate Amino Transferase 16 U/L (0-34); BUN/Creatinine Ratio 10 Ratio (12-20); Bilirubin,Total 1.0 mg/dL (0.3-1.2); Blood Urea Nitrogen 7 mg/dL (9-23); Calcium 8.3 mg/dL (8.3-10.6); Calcium (Corrected) 8.7 mg/dL (8.5-10.1); Carbon Dioxide 25.1 mMol/L (20.0-31.0); Chloride 102 mMol/L (98-107); Creatinine (Component) 0.7 mg/dL (0.6-1.3); Estimated Creatinine Clearance 97.5 mL/min (>60); Globulin 2.4 gm/dL (2.3-3.5); Glucose 115 mg/dL (74-106); Magnesium 1.5 mg/dL (1.6-2.6); Osmolality,Calculated 270 (275-295); Phosphorous 2.0 mg/dL (2.4-5.1); Potassium 3.8 mMol/L (3.4-5.1); Sodium 136 mMol/L (136-145); Total Protein 5.9 gm/dL (5.7-8.2); eGFR > 60 See Note
[2025-06-06] MEDS: Magnesium Sulfate 4 GM Ivpb 4 GM/50 ML BAG IV (09:24)
[2025-06-06] MEDS: NAPH,KPH MBDB 1 PACKET (1.5 GM) PO ×2 (09:25→09:26)
[2025-06-06] MEDS: ENOXAPARIN SOD INJ 40 MG/0.4 ML SYRINGE SC (09:25)
[2025-06-06] MEDS: LOSARTAN POTASSIUM 25 MG TABLET PO (09:26)
--- NOTE | 2025-06-06 13:34 | ESDS_ITS ---
<Statement entered by Trina Rogers MD - 06/06/25 17:13> I have reviewed the note and agree with the resident's assessment & plan with exceptions as below. I have personally reviewed labs, imaging, home meds/prior records, examined the patient, formulated and discussed management plan with the IM team. Patient examined at bedside today. Patient continued to tolerate oral diet and was having less abdominal pain patient was then discharged with the instructions listed below. Patient was ruled out of the 3 most common causes of acute pancreatitis including alcohol induced, triglyceridemia, and gallstone. This could be idiopathic, medication induced (unsure if patient has other medicines or taking other medicines including GLP-1's that could pose increased risk for pancreatitis), or infectious. Patient will need to follow-up with her PCP in order to mitigate risk factors for further pancreatitis. Patient also has history of cholecystectomy as well. Patient will need to follow-up with her PCP in regards to her diarrhea, as this can be seen commonly patients that do not have a gallbladder. #Acute pancreatitis #Electrolyte derangements #Type 2 diabetes Mellitus #Hypertension #Hyperlipidemia #Diarrhea Trina Rogers, PGY-2 Internal Medicine Planned Discharge Date 06/06/25 DS: Providers Provider Date of admission: 06/04/25 16:09 Primary care physician: Teto Carranza PA-C Admitting Provider: Rd Walter MD Attending Provider on Admission: Rd Walter MD Attending Provider on DC: Rd Walter MD Discharging Provider: Rd Walter MD DS: Diagnosis Problem List Completed Was Problem List Reviewed/Reconciled?: Yes Hospital Course Hospital Course Hospital course: 69-year-old female with a significant past medical history of T2DM, hypertension and morbid obesity, and osteoarthritis of bilat hips and knees, presenting for evaluation of LUQ and epigastric abdominal pain x 3 days. Patient was admitted for treatment of pancreatitis. ED course: T 97.5, HR 83, RR 18, O2 sat 98% RA. In ED CT abdomen was done and showed edema around the pancreas including tail of pancreas. Consistent with diagnosis of pancreatitis with no pseudocyst. Labs were significant for WBC 13.9, K 3.1, lipase 44, total bilirubin 1.3, lipid panel within normal limit. In ED patient recieved IV fluids, morphine, and potassium replacement. In hospital, no cause of pancreatitis was ever was identified. Patient's gallbladder was removed in 2023, patient does not drink alcohol, lipid panel within normal limits. Patient's benazepril and hydrochlorothiazide were stopped due to potential cause for pancreatitis. Patient's blood pressure control was well-maintained with losartan 25 mg daily and she will continue this medication outpatient. Patient received fluid maintenance of lactated Ringer's 150 cc an hour, morphine as needed, antiemetics and electrolytes were repleted as necessary. Discharge instructions: * Follow-up with PCP within 1-2 weeks of discharge. * Stop taking BENAZEPRIL and HYDROCHLOROTHIAZIDE which can increase your risk for pancreatitis. We have started LOSARTAN 25 mg daily for blood pressure, and your blood pressure has been well-controlled with this medication alone. * Continue taking medications as prescribed below. * Return to Emergency Room if symptoms persist, worsen, or new symptoms develop. Admission diagnoses: #Acute pancreatitis #Type 2 diabetes #Hypertension #Hyperlipidemia Case was discussed with my attending Dr. Walter and senior resident Dr. Sue Briseno MD PGY1 Time Spent with Patient Time attestation: Total time spent providing and/or coordinating discharge services: Time spent: Greater than 30 minutes Exam Vital Signs Temp Pulse Resp BP Pulse Ox O2 Del Method 98.1 F 67 18 125/77 94 L Room Air 06/06/25 08:00 06/06/25 09:26 06/06/25 08:00 06/06/25 09:26 06/06/25 08:00 06/06/25 08:00 Narrative Exam General: Alert, no acute distress. Skin: Warm, dry, intact, no obvious rash. Head: Normocephalic, atraumatic. Eye: Normal conjunctiva, PERRL. Throat: Oral mucosa moist. No obvious lesions in oropharynx. Cardiovascular: Regular rate and rhythm, no murmur, +S1/S2. Respiratory: Lungs are clear to auscultation, respirations unlabored, no crackles, no wheezing. Gastrointestinal: Soft, nondistended, mild tenderness to epigastric and left upper quadrant. No guarding or rebound tenderness. Extremities: No edema, no cyanosis, no clubbing. Mild tenderness to lumbar region vertebral and paravertebral. Neuro: No focal deficits observed. Conversant, moving all extremities. No overt cerebellar signs/incoordination. Psychiatric: Cooperative, appropriate affect. Discharge Plan Plan Patient Disposition: HOME (Self Care) Care Plan Goals: * Follow-up with PCP within 1-2 weeks of discharge. * Stop taking BENAZEPRIL and HYDROCHLOROTHIAZIDE which can increase your risk for pancreatitis. We have started LOSARTAN 25 mg daily for blood pressure, and your blood pressure has been well-controlled with this medication alone. * Continue taking medications as prescribed below. * Return to Emergency Room if symptoms persist, worsen, or new symptoms develop. Prescriptions/Referrals Prescriptions/Med Rec: New losartan 25 mg Tablet 25 mg PO QDAY Qty: 30 0RF Continued metformin 500 mg tablet 500 mg PO QDAY Patient Comments: TAKE 1 TABLET BY MOUTH TWICE A DAY WITH A MEAL fluticasone propionate 50 mcg/actuation spray,suspension 2 spray INTRANASAL Q12H Patient Comments: SPRAY 2 SPRAYS INTO INTO EACH NOSTRIL EVERY DAY acetaminophen 500 mg tablet 500 mg PO Q6H PRN (Reason: fever or pain) Patient Comments: TAKE 1 TABLET BY MOUTH EVERY 6 HOURS NEEDED omeprazole 20 mg capsule,delayed release(DR/EC) 20 mg PO QDAY Patient Comments: TAKE 1 CAPSULE BY MOUTH EVERY DAY atorvastatin 10 mg tablet 10 mg PO QDAY Patient Comments: TAKE 1 TABLET BY MOUTH EVERY DAY albuterol sulfate 90 mcg/actuation HFA aerosol inhaler 1 puff INHALATION Q4H PRN (Reason: shortness of breath or wheezing) Patient Comments: INHALE 2 PUFFS INTO THE LUNGS EVERY 4 HOURS NEEDED FOR 30 DAYS chromium picolinate 200 mcg tablet 200 mcg PO QDAY Discontinued benazepril 20 mg tablet 20 mg PO QDAY Patient Comments: TAKE 1 TABLET BY MOUTH EVERY DAY FOR 90 DAYS hydrochlorothiazide 25 mg tablet 25 mg PO QDAY Patient Comments: TAKE 1 TABLET BY MOUTH EVERY DAY Referrals: Teto Carranza PA-C [Primary Care Provider] - Patient/Caregiver Discharge Instructions Discharge Activity: activity as tolerated Education Materials: ED Pancreatitis Print Language: Peruvian Stand Alone Forms: Lisa Award Info., Patient Portal Info Letter Discharge Order Discharge Orders: Discharge (Routine); Ordered 06/06/25 Ordered By: Ervin Briseno Quality Discharge Quality Measures VTE prophylaxis (Lovenox) Attestestation Attestation I have examined the patient, reviewed labs and imaging findings, discussed the case with the resident(s), and reviewed entered orders. I agree with the plan of care as outlined in this note. Time Spent: [address] Saba MD
--- NOTE | 2025-06-06 13:39 | PC.SS ---
Patient is alert/oriented. Patient was able to verify demographics. Patient was admitted for pancreatitis. Patient is independent with ADL's. Patient is still employed. She drives herself to appointments. She states she lives alone. Patient states her sister, Trang, is the alt medical decision maker. PCP: BELKIS Bonilla. Last appt was 2-3 weeks ago. Patient pharmacy: [place] [facility]. Discharge plan: return home
--- NOTE | 2025-06-06 14:35 | PC.NURSE ---
Discharged orders noted. Patient states waiting for sister to come from [place].
== END 2025-06-06 15:35 | disposition home or self-care (01) | DRG 439 ==
LOC: SERX 16:25 → SERHOLD 17:22 → S3NX 20:39
PROVIDERS: Nurse Practitioner Family; Nurse Practitioner Primary Care; Admitting Provider Student in an Organized Health Care Education/Training Program; Emergency Provider Family Medicine; PCP Physician Assistant; Visit Provider Student in an Organized Health Care Education/Training Program
DX: K85.90 Acute pancreatitis without necrosis or infection, unspecified (principal); Z68.43 Body mass index [BMI] 50.0-59.9, adult; E66.01 Morbid (severe) obesity due to excess calories; E11.9 Type 2 diabetes mellitus without complications; I10 Essential (primary) hypertension; E87.6 Hypokalemia; M16.0 Bilateral primary osteoarthritis of hip; M17.0 Bilateral primary osteoarthritis of knee; E78.1 Pure hyperglyceridemia; K80.20 Calculus of gallbladder without cholecystitis without obstruction; E83.52 Hypercalcemia; Z90.49 Acquired absence of other specified parts of digestive tract; Z79.84 Long term (current) use of oral hypoglycemic drugs; Z79.4 Long term (current) use of insulin; Z79.899 Other long term (current) drug therapy
CPT/HCPCS: 36415; 74176; 80053; 80061; 81001; 83036; 83690; 83735; 84100; 84484; 85025; 87086; 96361; 96374; 96375; J1650; J2270; J2470; J3475; J3480; J7120; A9270

== ENCOUNTER → 2025-09-21 | Outpatient (CLI) | payer MEDICARE, SELFPAY ==
--- NOTE | 2025-09-21 10:24 | XR_ITS ---
Examination: Humerus 2 views left Technique: Humerus, AP lateral 2 views Date and time of exam: September 21, 2025, 1041 hours INDICATIONS: History of arm fracture 1 month ago with arm pain FINDINGS: Healing fracture proximal humeral shaft with satisfactory alignment Orthopedic hardware in satisfactory position Severe osteopenia IMPRESSION: Healing fracture proximal humeral shaft with satisfactory alignment
== END | disposition home or self-care (01) ==
PROVIDERS: PCP Orthopaedic Surgery; Referring Provider Orthopaedic Surgery; Visit Provider Orthopaedic Surgery
DX: S42.392A Other fracture of shaft of left humerus, initial encounter for closed fracture (principal); W18.39XA Other fall on same level, initial encounter
CPT/HCPCS: 73060

== ENCOUNTER → 2025-09-22 | Outpatient (CLI) | payer MEDICARE, SELFPAY ==
--- NOTE | 2025-09-22 12:00 | XR_ITS ---
Examination: MRI abdomen with intravenous contrast. MRI abdomen without intravenous contrast. Date and time of exam: September 22, 2025, 1240 hours INDICATIONS: History pancreatitis without necrosis diagnosis Technique: Multiple axial, sagittal and coronal sections of the abdomen obtained. Transverse images, TR 6020, TE 107. T1 weighted transverse images, TR 582, TE 9.5. T2-weighted sagittal images, TR 4000, TE 105. T2-weighted sagittal images, TR 4000, TE 5. Coronal images, TR 4210, TE 107. Axial and coronal images are obtained post 19 cc intravenous injection, gadolinium. Findings: Hepatomegaly 19 cm no intraperitoneal urinary tract dilatation Absent gallbladder Common hepatic duct 9 mm Common bile duct 8 mm no common hepatic or common bile duct stones No current pancreatitis No pseudocyst Spleen not enlarged No hydronephrosis No ascites Aorta normal size Enhancing anterior left renal lesion, 26 mm IMPRESSION: Moderate hepatomegaly No common Common bile duct stones No current pancreatitis Enhancing anterior left renal lesion 26 mm, recommend renal sonography follow-up
== END | disposition home or self-care (01) ==
LOC: SMRI 11:30
PROVIDERS: PCP Physician Assistant; Referring Provider Student in an Organized Health Care Education/Training Program; Visit Provider Student in an Organized Health Care Education/Training Program
DX: R16.0 Hepatomegaly, not elsewhere classified (principal); K80.50 Calculus of bile duct without cholangitis or cholecystitis without obstruction; N28.9 Disorder of kidney and ureter, unspecified
CPT/HCPCS: 74183; A9577